=== PATIENT | female | born 1990 | race Caucasian/White ===

== ENCOUNTER 2022-12-01 11:56 | Inpatient (IN) | payer BC ==
[~2022-12-01 11:56] MED LIST: Bupivacaine/Epinephrine 0.25% 30 ML VIAL ONE
[2022-12-01] MEDS ORDERED: Misoprostol 100 MCG TAB ONE (12:17)
[2022-12-01] MEDS: Lactated Ringer's 1,000 ML IV SCH (12:45)
[2022-12-01 13:10] VITALS: BMI 28.0
[2022-12-01] MEDS ORDERED: Misoprostol 200 MCG TAB PR PRN (13:27)
[2022-12-01] MEDS ORDERED: Docusate 100 MG CAP PO PRN (13:27)
[2022-12-01] MEDS ORDERED: Promethazine HCl 25 MG/ML VIAL IM PRN ×2 (13:27→20:44)
[2022-12-01] MEDS ORDERED: HYDROcodone/Acetaminophen 5/325 mg Tablet PO PRN ×2 (13:27)
[2022-12-01] MEDS ORDERED: Ibuprofen 800 MG TAB PO PRN (13:27)
[2022-12-01] MEDS ORDERED: Lidocaine 1% (PF) 30 ML VIAL SC PRN (13:27)
[2022-12-01] MEDS ORDERED: Zolpidem Tartrate 5 MG TAB PO PRN (13:27)
[2022-12-01] MEDS ORDERED: hydrALAZINE 20 MG/ML VIAL SLOW IVP PRN (13:27)
[2022-12-01] MEDS ORDERED: Ondansetron PF 4 MG/2 ML Vial IVP PRN ×2 (13:27→20:44)
[2022-12-01] MEDS ORDERED: Diphenoxylate HCl/Atropine Tablet PO PRN ×2 (13:27)
[2022-12-01] MEDS ORDERED: Acetaminophen 500 MG TAB PO PRN (13:27)
[2022-12-01] MEDS ORDERED: Methylergonovine 0.2 MG/ML VIAL IM PRN (13:27)
[2022-12-01] MEDS ORDERED: Carboprost 250 MCG/ML AMP IM PRN (13:27)
[2022-12-01] MEDS ORDERED: Tranexamic Acid 1,000 MG in Sodium Chloride 0.9% 250 ML 250 ML IVPB PRN (13:27)
[2022-12-01] MEDS ORDERED: NS w/ Oxytocin 30 units 500 ML IV SCH ×2 (13:30)
[2022-12-01 13:36] LABS: Hemoglobin 12.7 g/dL (12.0-15.5); Mean Corpuscular HGB CONC 35.8 g/dL (32.0-36.0); Mean Corpuscular Hemoglobin 32.7 pg (27.0-33.0); Mean Corpuscular Volume 91.5 fl (81.6-98.3); Mean Platelet Volume 11.6 fl (7.4-10.4); Platelet Count 246 10x3/uL (150-450); RBC Distribution Width 12.8 % (11.5-14.5); Red Blood Cell (RBC) Count 3.88 10x6/uL (3.90-5.03); White Blood Cell (WBC) Count 7.7 10x3/uL (3.5-10.5)
[2022-12-01 14:12] LABS: HBSAg Index 0.16 S/CO (0-0.99); Hep B Surf Ag Non-Reactive S/CO (NonReactive)
[2022-12-01 14:13] LABS: Syphilis Antibody Nonreactive (Nonreactive); Syphilis Antibody Index 0.04 S/CO (<1.00 Non-Reactive)
[2022-12-01 15:11] LABS: SARS-CoV-2 NAA Rapid Test Not Detected (NotDetected)
[2022-12-01] MEDS: Butorphanol Tartrate 1 MG/ML VIAL SLOW IVP PRN ×2 (15:33→18:47)
[2022-12-01] MEDS: Misoprostol 100 MCG TAB VAG SCH (16:21)
[2022-12-01] MEDS ORDERED: Fentanyl 2 mcg/Bup 0.1% Cadd 100 ML ONE (20:06)
[2022-12-01] MEDS ORDERED: Acetaminophen 325 MG TAB PO PRN (20:44)
[2022-12-01] MEDS ORDERED: diphenhydrAMINE 50 MG/ML VIAL IVP PRN (20:44)
[2022-12-01] MEDS ORDERED: Lactated Ringer's 500 ML IV PRN (20:44)
[2022-12-01] MEDS ORDERED: Naloxone HCl 0.4 mg/ml Vial IVP PRN ×2 (20:44)
[2022-12-01] MEDS ORDERED: Moisturizing Cream (Eucerin) 113 GM JAR TOP PRN (20:44)
[2022-12-01] MEDS ORDERED: ePHEDrine Sulfate 50 MG/10 ML VIAL SLOW IVP PRN (20:44)
[2022-12-01] MEDS ORDERED: Communication Order-Pharmacy FS SCH (20:45)
[2022-12-01] MEDS ORDERED: Fentanyl 2 mcg/Bupivacaine 0.1% Cassette 100 ML EPIDURAL SCH (20:45)
[2022-12-02] MEDS ORDERED: Zolpidem Tartrate 5 MG TAB PO PRN (02:28)
[2022-12-02] MEDS ORDERED: Measles/Mumps/Rubella 10 MCG/0.5 ML VIAL SC ONE (02:28)
[2022-12-02] MEDS ORDERED: Varicella virus, LIVE 0.5 ML VIAL SC ONE (02:28)
[2022-12-02] MEDS ORDERED: Boostrix 0.5 ML (Tdap) VIAL (>/=7 yrs of age) IM ONE (02:28)
[2022-12-02] MEDS ORDERED: Preparation H Ointment 28 GM TUBE PR PRN (02:28)
[2022-12-02] MEDS ORDERED: Benzocaine-Menthol 82.5 ML CAN TOP PRN (02:28)
[2022-12-02] MEDS ORDERED: HYDROcodone/Acetaminophen 5/325 mg Tablet PO PRN ×2 (02:28)
[2022-12-02] MEDS ORDERED: diphenhydrAMINE 25 MG CAP PO PRN (02:28)
[2022-12-02] MEDS ORDERED: Methylergonovine 0.2 MG/ML VIAL IM PRN (02:28)
[2022-12-02] MEDS ORDERED: Lanolin Ointment 7 GM TUBE TOP PRN (02:28)
[2022-12-02] MEDS ORDERED: Promethazine HCl 25 MG/ML VIAL IM PRN (02:28)
[2022-12-02] MEDS ORDERED: Bisacodyl 10 MG SUPP PR PRN (02:28)
[2022-12-02] MEDS ORDERED: hydrALAZINE 20 MG/ML VIAL SLOW IVP PRN (02:28)
[2022-12-02] MEDS ORDERED: Milk Of Magnesia 30 ML UDCUP PO PRN (02:28)
[2022-12-02] MEDS ORDERED: NS w/ Oxytocin 30 units 500 ML IV SCH (02:28)
[2022-12-02] MEDS ORDERED: Ondansetron PF 4 MG/2 ML Vial IVP PRN (02:28)
[2022-12-02] MEDS ORDERED: Misoprostol 200 MCG TAB VAG PRN (02:28)
[2022-12-02] MEDS: Misoprostol 100 MCG TAB VAG SCH ×2 (02:32→02:33)
[2022-12-02] MEDS: Lactated Ringer's 1,000 ML IV SCH (02:33)
[2022-12-02 03:39] LABS: Hemoglobin 10.8 g/dL (12.0-15.5); Mean Corpuscular HGB CONC 36.1 g/dL (32.0-36.0); Mean Corpuscular Hemoglobin 33.1 pg (27.0-33.0); Mean Corpuscular Volume 91.7 fl (81.6-98.3); Mean Platelet Volume 10.7 fl (7.4-10.4); Platelet Count 214 10x3/uL (150-450); RBC Distribution Width 12.7 % (11.5-14.5); Red Blood Cell (RBC) Count 3.26 10x6/uL (3.90-5.03); White Blood Cell (WBC) Count 15.8 10x3/uL (3.5-10.5)
[2022-12-02] MEDS: Ibuprofen 800 MG TAB PO SCH ×3 (05:57→22:11)
[2022-12-02] MEDS: Docusate 100 MG CAP PO SCH ×2 (09:30→22:11)
[2022-12-02] MEDS: Prenatal Vitamin 1 TAB PO SCH (09:30)
[2022-12-02] MEDS: Ferrous Sulfate 325 MG TAB PO SCH (18:00)
[2022-12-03] MEDS: Ibuprofen 800 MG TAB PO SCH ×2 (05:38→14:35)
[2022-12-03] MEDS: Ferrous Sulfate 325 MG TAB PO SCH (08:37)
[2022-12-03] MEDS: Docusate 100 MG CAP PO SCH (08:41)
[2022-12-03] MEDS: Prenatal Vitamin 1 TAB PO SCH (08:41)
[2022-12-03 11:44] VITALS: BP 133/91; TEMP 97.5
== END 2022-12-03 14:55 | disposition home or self-care (01) | DRG 807 ==
LOC: CSHLD 11:56 → CSHPP 12-02 01:55
PROVIDERS: ADMIT Obstetrics & Gynecology; ATTEND Obstetrics & Gynecology
PROC: 10E0XZZ Delivery of Products of Conception, External Approach (ICD-10-PCS; principal; 2022-12-01)
DX: O99.892 Other specified diseases and conditions complicating childbirth (principal); Z37.0 Single live birth; Z3A.39 39 weeks gestation of pregnancy; O70.1 Second degree perineal laceration during delivery; R03.0 Elevated blood-pressure reading, without diagnosis of hypertension; Z20.822 Contact with and (suspected) exposure to COVID-19; Z88.1 Allergy status to other antibiotic agents; Z91.040 Latex allergy status
CPT/HCPCS: 36415; 85027; 86762; 86780; 86850; 86900; 86901; 87340; J0595; J2405; J7120; U0002